=== PATIENT | female | born 1980 | race Caucasian/White ===

== ENCOUNTER 2018-05-31 09:51 | Emergency (ER) | payer MEDICAID, SELFPAY ==
[2018-05-31 09:53] VITALS: BP 160/117; PULSE 96; RESP 14; TEMP 37.2; O2SAT 98; BMI 37.7
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
[2018-05-31] MEDS: Erythromycin Base 1 OPTH.TUBE 1 APPLIC EACH EYE (10:35)
[2018-05-31] MEDS: LORazepam 2 MG/ML Syringe 1 MG IM (10:35)
== END 2018-05-31 10:39 | disposition home or self-care (01) ==
LOC: ED 10:25
PROVIDERS: Emergency Provider Emergency Medicine; Family Provider Internal Medicine; PCP Internal Medicine
DX: F41.9 Anxiety disorder, unspecified (principal); H10.9 Unspecified conjunctivitis; F32.9 Major depressive disorder, single episode, unspecified
CPT/HCPCS: 96372; 99282

== ENCOUNTER 2018-06-14 07:15 | Emergency (ER) | payer MEDICAID, SELFPAY ==
[2018-06-14 07:16] VITALS: BP 173/107; PULSE 100; RESP 18; TEMP 37.1; O2SAT 98; BMI 34.5
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
[2018-06-14] MEDS: Naproxen 500 MG Tablet PO (07:34)
[2018-06-14] MEDS: LORazepam 1 MG Tablet PO (07:34)
--- NOTE | 2018-06-14 07:35 | ED.DEP ---
ED Disposition - Plan for ED Patient: Disposition: Home or Assisted Living Chief Complaint: Anxiety Instructions: ED Stress React Prescriptions: Naproxen [Naprosyn] 500 mg PO BID PRN #20 tablet PRN Reason: Pain Lorazepam [Ativan] 1 mg PO TID PRN #10 tablet PRN Reason: Anxiety Referrals: Delaney Sotomayor MD [Primary Care Provider] - As soon as possible Additional Instructions: Our social workers will contact you regarding counseling options available in the area.
== END 2018-06-14 07:55 | disposition home or self-care (01) ==
PROVIDERS: Emergency Provider Emergency Medicine; Family Provider Internal Medicine; PCP Internal Medicine
DX: F41.9 Anxiety disorder, unspecified (principal); M54.9 Dorsalgia, unspecified; J45.909 Unspecified asthma, uncomplicated; F32.9 Major depressive disorder, single episode, unspecified
CPT/HCPCS: 99283

== ENCOUNTER 2018-08-15 05:18 | Emergency (ER) | payer MEDICAID, SELFPAY ==
[2018-08-15 05:19] VITALS: BP 162/76; PULSE 139; RESP 20; TEMP 36.2; O2SAT 100; BMI 37.3
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
[2018-08-15] MEDS: LORazepam 1 MG Tablet PO (05:30)
[2018-08-15 06:03] VITALS: PULSE 108; RESP 18; O2SAT 100
--- NOTE | 2018-08-15 06:11 | ED.DEP ---
ED Disposition - Plan for ED Patient: Chief Complaint: Anxiety Instructions: ED Panic Attack Prescriptions: Lorazepam [Ativan] 1 mg PO TID PRN #6 tablet PRN Reason: Anxiety Referrals: Delaney Sotomayor MD [Primary Care Provider] -
[2018-08-15 06:24] VITALS: BP 135/87; PULSE 106; RESP 16; O2SAT 100
== END 2018-08-15 06:25 | disposition home or self-care (01) ==
PROVIDERS: Emergency Provider Emergency Medicine; Family Provider Internal Medicine; PCP Internal Medicine
DX: F41.9 Anxiety disorder, unspecified (principal); F43.10 Post-traumatic stress disorder, unspecified; F32.9 Major depressive disorder, single episode, unspecified
CPT/HCPCS: 99283

== ENCOUNTER 2018-08-19 11:01 | Emergency (ER) | payer MEDICAID, SELFPAY ==
[2018-08-19 11:02] VITALS: BP 150/103; PULSE 102; RESP 18; TEMP 36.6; O2SAT 97; BMI 36.7
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
[2018-08-19] MEDS: LORazepam 1 MG Tablet PO (12:29)
== END 2018-08-19 12:31 | disposition home or self-care (01) ==
LOC: ED 12:24
PROVIDERS: Emergency Provider Emergency Medicine; Family Provider Internal Medicine; PCP Internal Medicine
DX: F41.9 Anxiety disorder, unspecified (principal); E66.9 Obesity, unspecified; F32.9 Major depressive disorder, single episode, unspecified
CPT/HCPCS: 99283

== ENCOUNTER 2018-08-22 00:52 | Emergency (ER) | payer MEDICAID, SELFPAY ==
[2018-08-22 00:53] VITALS: BP 154/80; PULSE 91; RESP 18; TEMP 36.2; O2SAT 98; BMI 39.4
[2018-08-22] MEDS: Triamcinolone Acetonide 40 MG/ML Vial IM (01:46)
[2018-08-22] MEDS: Ondansetron ODT 4 MG Tablet PO (01:46)
[2018-08-22 01:56] VITALS: BP 145/80; PULSE 80; RESP 14; O2SAT 98
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
--- NOTE | 2018-08-22 02:40 | ED.DEP ---
ED Disposition - Plan for ED Patient: Chief Complaint: Allergic Reaction Instructions: ED Bite Sting Insect Local Allergic React Prescriptions: Ondansetron [Zofran Odt] 4 mg PO Q8H PRN PRN #10 tab PRN Reason: Nausea Referrals: Delaney Sotomayor MD [Primary Care Provider] -
[2018-08-22 02:56] VITALS: BP 146/75; PULSE 85; RESP 14; O2SAT 98
== END 2018-08-22 02:59 | disposition home or self-care (01) ==
PROVIDERS: Emergency Provider Emergency Medicine; Family Provider Internal Medicine; PCP Internal Medicine
DX: T78.40XA Allergy, unspecified, initial encounter (principal); W57.XXXA Bitten or stung by nonvenomous insect and other nonvenomous arthropods, initial encounter; R11.0 Nausea; F41.9 Anxiety disorder, unspecified
CPT/HCPCS: 99284; A4216

== ENCOUNTER 2019-02-21 17:27 | Emergency (ER) | payer MEDICAID, SELFPAY ==
[2019-02-21 17:28] VITALS: BP 125/64; PULSE 86; RESP 17; TEMP 36.7; O2SAT 97; BMI 41.5
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
--- NOTE | 2019-02-21 18:44 | US_ITS ---
STUDY: VENOUS DOPPLER ULTRASOUND - BILATERAL LOWER EXTREMITIES REASON FOR EXAM: Female, 38 years old. Bilateral lower extremity swelling TECHNIQUE: Ultrasound evaluation of the deep vein system to include jackson-scale imaging and compression was performed. Jackson-scale imaging and Doppler sonographic evaluation, including duplex spectral analysis and qualitative color flow sonography, was performed. COMPARISON: None. FINDINGS: RIGHT LEG Common Femoral Vein: Normal compression, spontaneity and augmentation. Normal color Doppler. Common Femoral Vein/Greater Saphenous Junction: Normal compression, spontaneity and augmentation. Normal color Doppler. Deep Femoral Vein: Normal compression, spontaneity and augmentation. Normal color Doppler. Femoral Proximal: Normal compression, spontaneity and augmentation. Normal color Doppler. Femoral Middle: Normal compression, spontaneity and augmentation. Normal color Doppler. Femoral Distal: Normal compression, spontaneity and augmentation. Normal color Doppler. Popliteal Vein: Normal compression, spontaneity and augmentation. Normal color Doppler. Posterior Tibial Vein: Normal compression, spontaneity and augmentation. Normal color Doppler. Peroneal Vein: Normal compression, spontaneity and augmentation. Normal color Doppler. LEFT LEG Common Femoral Vein: Normal compression, spontaneity and augmentation. Normal color Doppler. Common Femoral Vein/Greater Saphenous Junction: Normal compression, spontaneity and augmentation. Normal color Doppler. Deep Femoral Vein: Normal compression, spontaneity and augmentation. Normal color Doppler. Femoral Proximal: Normal compression, spontaneity and augmentation. Normal color Doppler. Femoral Middle: Normal compression, spontaneity and augmentation. Normal color Doppler. Femoral Distal: Normal compression, spontaneity and augmentation. Normal color Doppler. Popliteal Vein: Normal compression, spontaneity and augmentation. Normal color Doppler. Posterior Tibial Vein: Normal compression, spontaneity and augmentation. Normal color Doppler. Peroneal Vein: Normal compression, spontaneity and augmentation. Normal color Doppler. US/Venous Duplex Imag/John Extrem IMPRESSION: Normal venous Doppler ultrasound of the bilateral lower extremities. Electronically Signed: Michele Gilbert MD at 19:47 EDT , Service support ,
[2019-02-21] MEDS: Ondansetron 4 MG/2 ML Vial IV ×2 (18:48→20:31)
[2019-02-21] MEDS: Morphine 2 MG/ML Syringe IV (18:48)
[2019-02-21 19:18] LABS: Absolute Lymphocyte Count 1.91 X10^3/ul (0.83-4.51); Absolute Neutrophil Count 2.9 X10^3/uL (2.0-7.7); Basophil# 0.03 X10^3/uL; Basophil% 0.6 % (0-1); Eosinophil# 0.27 X10^3/uL; Hematocrit 34.8 % (37-47); Hemoglobin 11.7 g/dl (12.0-15.0); Lymphocyte # 1.91 X10^3/ul (4.0); Lymphocyte % 35.1 % (19-41); Mean Corp Hgb Conc 33.6 g/gl (32-36); Mean Corpuscular Volume 83.3 fL (81-99); Mean Platelet Vol. 10.2 fl (6.2-12.0); Monocyte# 0.35 X10^3/uL; Monocyte% 6.4 % (0-10); Neutrophil # 2.87 X10^3/uL (2.7-7.7); Neutrophil % 52.7 % (47-70); Platelet Count 231 K/mm3 (150-450); RBC Distribution Width CV 13.2 % (11.6-14.6); RBC Distribution Width SD 39.8 fl (35.1-43.9); Red Blood Count 4.18 M/mm3 (4.2-5.4); White Blood Count 5.4 K/mm3 (4.4-11.0)
[2019-02-21 19:19] LABS: POSITIVE COUNT NO; POSITIVE DIFFERENTIAL NO; POSITIVE MORPHOLOGY NO
[2019-02-21 19:23] LABS: Partial Thromboplast Time 32.2 Seconds (24.1-36.2)
[2019-02-21 19:34] LABS: AST(SGOT) 18 U/L (15-37); Alanine Aminotransfer ALT/SGPT 25 U/L (13-56); Albumin, Serum 3.3 g/dL (3.2-5.0); Alkaline Phosphatase 73 U/L (45-117); Anion Gap 6 (5-15); BUN 7 mg/dL (7-18); Calcium,Total 8.9 mg/dL (8.5-10.1); Chloride 103 mmol/L (98-107); Creatinine, Serum 0.64 mg/dL (0.55-1.02); EST Glomerular Filtration Rate 110 mL/min (>60); Est Glom Filt Rate - Afr Amer 133 mL/min (>60); Estimated Creatinine Clearance 97.62 ml/min; Globulin 3.3 g/dL (2.2-4.2); Glucose 96 mg/dL (74-106); Potassium 3.5 mmol/L (3.5-5.1); Protein, Total 6.6 g/dL (6.4-8.2); Sodium Level 140 mmol/L (136-145)
[2019-02-21 19:46] LABS: BNP,B-Type NATRIURETIC PEPTIDE 37.9 pg/mL (0-100)
[2019-02-21 20:16] LABS: Bacteria 0 SEEN /hpf (None Seen); Mucous, Urine 0 SEEN /hpf (<or=2+); Red Blood Cells-Urine 0 SEEN /hpf (0-5); White Blood Cells 0 SEEN /hpf (0-5)
[2019-02-21 20:18] LABS: Color, Urine Yellow (Yellow); Glucose, Dipstick Normal (Normal); Ketone-Dipstick Negative (Negative); Leukocyte Esterase-Dipstick Negative /ul (Negative); Nitrite-Dipstick Negative (Negative); Occult Blood-Urine Negative /ul (Negative); Protein-Dipstick Negative (Negative); Urine Bilirubin Dipstick Negative (Negative); Urine Clarity Clear (Clear); Urine Urobilinogen Normal (Normal)
[2019-02-21 20:29] LABS: Squamous Epithelial Cells - UA 5-10 SEEN /hpf (5-10)
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
[2019-02-21 21:02] VITALS: BP 137/78; PULSE 71; RESP 16; O2SAT 98
== END 2019-02-21 21:03 | disposition home or self-care (01) ==
PROVIDERS: Emergency Provider Emergency Medicine; Family Provider Internal Medicine; PCP Internal Medicine
DX: R60.0 Localized edema (principal); Z88.5 Allergy status to narcotic agent; Z86.718 Personal history of other venous thrombosis and embolism
CPT/HCPCS: 74176; 80053; 81001; 83880; 84484; 85025; 85610; 85730; 93970; 96374; 96375; 96376; 99282; A4216; J2405

== ENCOUNTER 2019-02-23 13:26 | Emergency (ER) | payer MEDICAID, SELFPAY ==
[2019-02-23 13:27] VITALS: BP 126/81; PULSE 119; RESP 18; TEMP 37.1; O2SAT 97; BMI 41.8
[2019-02-23 13:40] VITALS: PULSE 107; RESP 15; O2SAT 96
--- NOTE | 2019-02-23 13:55 | RAD_ITS ---
STUDY: X-RAY CHEST REASON FOR EXAM: Female, 38 years old. Chest fullness. Bilateral lower extremity swelling. TECHNIQUE: Single AP portable view of the chest. COMPARISON: None. FINDINGS: EKG or tubes are seen. The lungs are clear and expanded. There is no demonstrated pleural abnormality. Normal size heart. Normal mediastinum and mratin. Normal visualized pulmonary arteries. Normal visualized aortic arch and descending thoracic aorta. Normal visualized thoracic spine. Normal visualized ribs, clavicles, and shoulders. There is no demonstrated abnormality of the visualized soft tissue structures of the upper abdomen. RAD/Chest 1 View (Portable) IMPRESSION: Normal x-ray examination of the chest. Electronically Signed: Hussain Awad, at 14:15 EDT , Service support ,
--- NOTE | 2019-02-23 13:55 | EKG12_ITS ---
Test Reason : EDEMA Blood Pressure : / mmHG Vent. Rate : 087 BPM Atrial Rate : 087 BPM P-R Int : 136 ms QRS Dur : 082 ms QT Int : 394 ms P-R-T Axes : 037 003 024 degrees QTc Int : 474 ms Normal sinus rhythm Cannot rule out Anterior infarct , age undetermined Abnormal ECG Confirmed by HAMMAD CAT ([id number]), publications editor YAHAIRA HAJI ([id number]) on 03/02/2019 2:03:51 PM Referred By: Bobby Duncan Confirmed By:HAMMAD CAT
[2019-02-23] MEDS: Ondansetron 4 MG/2 ML Vial IV (14:15)
[2019-02-23] MEDS: Morphine 4 MG/ML Syringe IV ×2 (14:15→16:51)
[2019-02-23 14:33] LABS: Absolute Lymphocyte Count 1.83 X10^3/ul (0.83-4.51); Absolute Neutrophil Count 2.8 X10^3/uL (2.0-7.7); Basophil# 0.03 X10^3/uL; Basophil% 0.5 % (0-1); Eosinophil# 0.26 X10^3/uL; Eosinophils% 4.8 % (0-5); Hematocrit 36.2 % (37-47); Hemoglobin 12.1 g/dl (12.0-15.0); Lymphocyte # 1.83 X10^3/ul (4.0); Lymphocyte % 33.5 % (19-41); Mean Corp Hgb Conc 33.4 g/gl (32-36); Mean Corpuscular Hgb 27.5 pg (27.0-32.0); Mean Corpuscular Volume 82.3 fL (81-99); Mean Platelet Vol. 10.2 fl (6.2-12.0); Monocyte# 0.51 X10^3/uL; Monocyte% 9.3 % (0-10); Neutrophil # 2.82 X10^3/uL (2.7-7.7); Neutrophil % 51.7 % (47-70); Platelet Count 257 K/mm3 (150-450); RBC Distribution Width CV 13.3 % (11.6-14.6); RBC Distribution Width SD 38.3 fl (35.1-43.9); White Blood Count 5.5 K/mm3 (4.4-11.0)
[2019-02-23 14:34] LABS: POSITIVE COUNT NO; POSITIVE DIFFERENTIAL NO; POSITIVE MORPHOLOGY NO
[2019-02-23 14:39] LABS: Prothrombin Time (Protime)PT. 12.7 SECONDS (11.7-14.9)
[2019-02-23 14:40] LABS: Partial Thromboplast Time 32.9 Seconds (24.1-36.2)
[2019-02-23 15:01] LABS: AST(SGOT) 16 U/L (15-37); Alanine Aminotransfer ALT/SGPT 25 U/L (13-56); Albumin, Serum 3.2 g/dL (3.2-5.0); Alkaline Phosphatase 77 U/L (45-117); Anion Gap 8 (5-15); BUN 11 mg/dL (7-18); BUN/Creat Ratio 16.9 RATIO (10-20); Bilirubin, Direct 0.07 mg/dL (0.00-0.30); Calcium,Total 8.8 mg/dL (8.5-10.1); Chloride 106 mmol/L (98-107); Creatinine, Serum 0.65 mg/dL (0.55-1.02); EST Glomerular Filtration Rate 108 mL/min (>60); Est Glom Filt Rate - Afr Amer 130 mL/min (>60); Estimated Creatinine Clearance 96.12 ml/min; Globulin 3.5 g/dL (2.2-4.2); Glucose 106 mg/dL (74-106); Lipase 64 U/L (73-393); Potassium 3.6 mmol/L (3.5-5.1); Protein, Total 6.7 g/dL (6.4-8.2); Sodium Level 142 mmol/L (136-145)
--- NOTE | 2019-02-23 16:53 | ED.DCSUM_ITS ---
- ER Visit Summary Date of Service: 02/23/19 Chief Complaint: Bilateral lower extremity swelling History of Present Illness: The patient is a 38 F complaining last 4 days of bilateral lower extremity swelling. She was seen in the emergency department 2 days ago on extensive work-up in which the labs were unremarkable and there was also a negative venous study of both lower extremities and negative abdominal CT. She denies any chest pain or shortness of breath. States she is never had this before. Physical Examination: Middle-aged female no acute distress vital signs stable afebrile. Pulse ox 97% room air no signs of hypoxia. HEENT exam unremarkable. Neck nontender no lymphadenopathy. No JVD. Lungs clear to auscultation bilaterally. Heart regular rhythm rate about 110 no murmur. Abdomen soft nontender nondistended normal bowel sounds no peritoneal signs. She does have bruising on her abdominal wall after she got that she was unsure. She denies trauma. She is not on any type of anticoagulation or any type of abdominal injections. Is all 4. Neurovascular intact. She does have 1-2+ pitting edema both lower extremities. Equal symmetrical. Calves are nontender. Both lower back is intact. No compartment. Dorsi plantar flexion intact. Test Results: None. Chest x-ray showed no acute abnormality. Normal cardiac silhouette mediastinum. CBC normal white count of 5. Hemoglobin 12. Chemistries normal. Gap of 8. Liver enzymes are normal. Lipase normal at 64. PT PTT INR all normal. EKG sinus rhythm rate of 90. No acute signs of RI or ischemia. No dysrhythmia. Emergency Department Course and Treatment: Repeat exam is unchanged. I did review her work-up from 2 days ago. At that time her labs are also unremarkable. At that time she had negative ultrasound of both legs with no signs of DVT. Edema she also is pelvis without any signs of inferior vena cava clot. Treatment Plan: Discharge home. Elevate her legs. Follow-up with primary care physician Dr. Sotomayor. We will place the patient on Lasix 20 mg a day for the next 5 days along with oral potassium at home. She needs to follow-up with your doctor to ensure she is improving. And for further diuretic as needed. Disposition: Discharge Impression: Acute bilateral lower extremity peripheral edema of uncertain etiology This note was generated with [employer] software. It may contain incorrect words, spelling, and punctuation that were not noted in review of the chart prior to signing ED Disposition - Plan for ED Patient: Disposition: Home or Assisted Living Instructions: PERIPHERAL EDEMA, Bilateral Referrals: Delaney Sotomayor MD [Primary Care Provider] - As soon as possible Additional Instructions: Call follow-up with your doctor. Elevate your legs to decrease the swelling. Follow-up and get compression stockings.
[2019-02-23 16:54] VITALS: BP 147/92; PULSE 82; RESP 18; O2SAT 97
--- NOTE | 2019-02-23 16:57 | ED.DEP ---
ED Disposition - Plan for ED Patient: Disposition: Home or Assisted Living Instructions: PERIPHERAL EDEMA, Bilateral Prescriptions: Potassium Chloride [K-Dur] 20 meq PO DAILY 5 Days tab Prescription Printed Furosemide [Lasix] 20 mg PO DAILY #5 tab Prescription Printed Referrals: Delaney Sotomayor MD [Primary Care Provider] - As soon as possible Additional Instructions: Call follow-up with your doctor. Elevate your legs to decrease the swelling. Follow-up and get compression stockings.
[2019-02-23 17:09] VITALS: BP 138/78; PULSE 82; RESP 18; O2SAT 99
== END 2019-02-23 17:09 | disposition home or self-care (01) ==
PROVIDERS: Emergency Provider Emergency Medicine; Family Provider Internal Medicine; PCP Internal Medicine
DX: R60.0 Localized edema (principal); S30.1XXA Contusion of abdominal wall, initial encounter; R05 Cough; X58.XXXA Exposure to other specified factors, initial encounter; Y93.9 Activity, unspecified; Y92.9 Unspecified place or not applicable; F32.9 Major depressive disorder, single episode, unspecified; F41.9 Anxiety disorder, unspecified; Z79.899 Other long term (current) drug therapy
CPT/HCPCS: 71045; 80048; 80076; 83690; 84484; 85025; 85610; 85730; 93005; 96374; 96375; 96376; 99284; A4216; J2405

== ENCOUNTER 2019-02-25 17:11 | Observation (INO) | payer MEDICAID, SELFPAY ==
[2019-02-25 17:12] VITALS: BP 143/88; PULSE 92; RESP 16; TEMP 36.6; O2SAT 98; BMI 41.4
--- NOTE | 2019-02-25 17:52 | EKG12_ITS ---
Test Reason : RHYTHM CH Blood Pressure : / mmHG Vent. Rate : 065 BPM Atrial Rate : 065 BPM P-R Int : 134 ms QRS Dur : 080 ms QT Int : 466 ms P-R-T Axes : 022 010 037 degrees QTc Int : 484 ms Normal sinus rhythm Prolonged QT Abnormal ECG When compared with ECG of 25-FEB-2019 18:00, MANUAL COMPARISON REQUIRED, DATA IS UNCONFIRMED Confirmed by JOSSE CRUZ, SEGUN ([id number]), editor map YAHAIRA HAJI ([id number]) on 03/01/2019 8:08:08 AM Referred By: Bobby Duncan Confirmed By:SEGUN LOAIZA MD
--- NOTE | 2019-02-25 17:53 | CT_ITS ---
STUDY: CTA OF THE ABDOMINAL AORTA REASON FOR EXAM: Female, 38 years old. Leg swelling and shortness of breath. TECHNIQUE: Axial CT angiography multi-detector data acquisition was obtained from the diaphragm to the pelvis following intravenous administration of 100ml IV Isovue 370. Axial images and MIP images were reconstructed from the axial data set. Post-processing of the angiographic images was performed, with multiplanar reformation and 3D reconstruction. Individualized dose optimization techniques were used for this CT. TECHNICAL QUALITY: Good COMPARISON: Prior abdomen and pelvic CT exam of February 21, 2019 Descriptors of Narrowing: None (0%) Mild (< 50%) Moderate (50-70%) Severe (70-90%) Subtotal/Total Occlusion (90-100%) Non-Evaluable (technically non-diagnostic FINDINGS: Abdominal aorta: No demonstrated narrowing. Celiac and superior mesenteric arteries: No demonstrated narrowing. Inferior mesenteric artery: No demonstrated narrowing. Right renal artery(arteries): No demonstrated narrowing. Left renal artery(arteries): No demonstrated narrowing. Right common iliac artery: No demonstrated narrowing. Right external iliac artery: No demonstrated narrowing. Right internal iliac artery: No demonstrated narrowing. Left common iliac artery: No demonstrated narrowing. Left external iliac artery: No demonstrated narrowing. Left internal iliac artery: No demonstrated narrowing. RIGHT LOWER EXTREMITY Right common femoral artery: No demonstrated narrowing. Right profundus femoris: No demonstrated narrowing. LEFT LOWER EXTREMITY Left common femoral artery: No demonstrated narrowing. Left profundus femoris: No demonstrated narrowing. Unremarkable liver, spleen and pancreas. Status post cholecystectomy. Normal appearance of the kidneys bilaterally. A small nonobstructing calcification of the left kidney is not visible on today's exam secondary to contrast present in the collecting system. Nondistended stomach and small bowel. Stool filled colon. Status post appendectomy. There is a 16 x 11 x 12 mm dense or enhancing nodule associated with distal small bowel occurring just above the bladder. There is generalized anasarca since the prior exam and a minimal amount of peritoneal fluid increased from prior exam. There is a 4 cm cyst of the right ovary. Unremarkable uterus and left ovary. Nondistended urinary bladder. Unremarkable inferior vena cava and iliac veins. CT/CT ANGIO ABD&PEL W/O&W/DYE IMPRESSION: Normal abdominal aorta and and abdominal branches. Normal noncontrast filled inferior vena cava and iliac veins. Mild anasarca and minimal ascites. Stool filled colon. Status post appendectomy. 4 cm cyst of the right ovary. 16 x 11 x 12 dense or enhancing nodule associated with distal small bowel occurring just above the bladder. Possibilities include a dense food particle or enhancing mass such as polyp. Otherwise normal small bowel. Unremarkable stomach. A tiny nonobstructing calcification in the lower pole the left kidney is not visible secondary to contrast present in the collecting systems. This was identified on the prior noncontrast exam. Electronically Signed: Christiana Cervantes MD at 20:07 EDT , Service support ,
--- NOTE | 2019-02-25 17:53 | CT_ITS ---
STUDY: CTA CHEST REASON FOR EXAM: Female, 38 years old. Leg swelling and shortness of breath. RADIATION DOSAGE (If Supplied By Facility): CTDIvol = ( 26.03 ) mGy, DLP = ( 1569.44 ) mGycm TECHNIQUE: The examination was performed with the intravenous administration of 100ml IV Isovue 370. Post-processing of the angiographic images was performed, with multiplanar reformation and 3D reconstruction. Individualized dose optimization techniques were used for this CT. COMPARISON: Portable chest radiograph February 23, 2019 FINDINGS: Normal enhancement of the main pulmonary artery and right and left pulmonary arteries. Normal enhancement of the bilateral peripheral pulmonary arteries. There is no demonstrated pulmonary embolism. Normal thoracic aorta and visualized great vessels. There is no demonstrated aortic dissection. Normal heart and pericardium. Normal mediastinum. Normal hilar regions. Normal visualized trachea and bronchi. Mild bibasilar posterior atelectatic changes. Negative for pleural effusion. Normal chest wall structures. Normal osseous structures. CT/CTA Chest W/WO Contrast IMPRESSION: Negative for pulmonary embolus. Normal thoracic aorta. Negative for coronary calcification. Mild posterior bibasilar atelectatic changes. Electronically Signed: Christiana Cervantes MD at 19:54 EDT , Service support ,
--- NOTE | 2019-02-25 17:54 | ED.VISSUMM ---
- ER Visit Summary Date of Service: 02/25/19 Chief Complaint: Bilateral leg swelling History of Present Illness: The patient is a 38 F presents for 5 days of bilateral leg swelling, now with significant pain in the legs. Patient is also now having chest heaviness and dyspnea on exertion. This is her third visit to the emergency department for the same and she was sent in by her primary care doctor today. Patient's legs are more painful to touch. She is having nausea, vocal hoarseness, and has a rash on her abdomen all of which is been present since the onset of the leg swelling. Patient has felt febrile as well. She is tried Lasix without any improvement. She is on Omnicef for her vocal hoarseness. She denies any medical problems other than depression. She has no recent medication changes. Physical Examination: Vital signs: afebrile, hemodynamically stable, no hypoxia on room air General: well nourished, well developed, in no distress Skin: warm, dry, purpura along the anterior waist above patient's natural waistline, no pallor HEENT: normocephalic and atraumatic; PERRL, EOMI, moist mucous membranes Cardiovascular: Tachycardic rate and rhythm without murmurs, 2+ symmetric peripheral edema, tense and tender, mild erythema, extends up to the mid thigh, 2+ pulses all distal extremities Respiratory: No increased work of breathing, lungs are clear to auscultation bilaterally, no rales, rhonchi or wheezing Abdominal: Abdomen is soft, nontender with normoactive bowel sounds, no guarding or rebound, no masses MSK: Moves all extremities, no deformities, normal strength Neuro: Awake and alert, oriented ?4. No facial droop, sensation and motor function intact and symmetric Test Results: Abnormal Lab Results 02/25/19 02/25/19 02/25/19 18:35 18:35 18:35 WBC 5.9 RBC 4.42 Hgb 12.4 Hct 36.5 L MCV 82.6 MCH 28.1 MCHC 34.0 RDW 13.5 RDW Differential 39.5 Plt Count 258 MPV 10.1 Immature Gran % (Auto) 0.200 Neut % (Auto) 55.0 Lymph % (Auto) 32.1 [place] % (Auto) 7.1 Eos % (Auto) 5.1 H Baso % (Auto) 0.5 Absolute Neuts (auto) 3.2 Absolute Lymphs (auto) 1.89 Total Counted Not Reportable Sodium 139 Potassium 3.7 Chloride 105 Carbon Dioxide 30.0 Anion Gap 4 L BUN 6 L Creatinine 0.66 Estim Creat Clear Calc 94.67 Est GFR (MDRD) Af Amer 129 Est GFR (MDRD) Non-Af 106 BUN/Creatinine Ratio 9.1 L Glucose 95 Lactic Acid 0.6 Calcium 8.7 Total Bilirubin 0.30 Direct Bilirubin 0.08 AST 15 ALT 22 Alkaline Phosphatase 77 Troponin I < 0.015 B-Natriuretic Peptide Total Protein 6.8 Albumin 3.3 Globulin 3.5 TSH 2.82 Free T4 0.62 L Serum , Qual 02/25/19 02/25/19 18:35 18:35 WBC RBC Hgb Hct MCV MCH MCHC RDW RDW Differential Plt Count MPV Immature Gran % (Auto) Neut % (Auto) Lymph % (Auto) [place] % (Auto) Eos % (Auto) Baso % (Auto) Absolute Neuts (auto) Absolute Lymphs (auto) Total Counted Sodium Potassium Chloride Carbon Dioxide Anion Gap BUN Creatinine Estim Creat Clear Calc Est GFR (MDRD) Af Amer Est GFR (MDRD) Non-Af BUN/Creatinine Ratio Glucose Lactic Acid Calcium Total Bilirubin Direct Bilirubin AST ALT Alkaline Phosphatase Troponin I B-Natriuretic Peptide 35.4 Total Protein Albumin Globulin TSH Free T4 Serum , Qual NEGATIVE Clinical Impression(s) from Imaging Studies Abdomen/Pelvis CTA 02/25/19 17:53 IMPRESSION: Normal abdominal aorta and and abdominal branches. Normal noncontrast filled inferior vena cava and iliac veins. Mild anasarca and minimal ascites. Stool filled colon. Status post appendectomy. 4 cm cyst of the right ovary. 16 x 11 x 12 dense or enhancing nodule associated with distal small bowel occurring just above the bladder. Possibilities include a dense food particle or enhancing mass such as polyp. Otherwise normal small bowel. Unremarkable stomach. A tiny nonobstructing calcification in the lower pole the left kidney is not visible secondary to contrast present in the collecting systems. This was identified on the prior noncontrast exam. Electronically Signed: Christiana Cervantes MD at 20:07 EDT , Service support , Chest CTA 02/25/19 17:53 IMPRESSION: Negative for pulmonary embolus. Normal thoracic aorta. Negative for coronary calcification. Mild posterior bibasilar atelectatic changes. Electronically Signed: Christiana Cervantes MD at 19:54 EDT , Service support , Medications Given Discontinued Medications Furosemide (Lasix) 40 mg IV X1 ONE Stop: 02/25/19 21:21 Sodium Chloride () 500 mls @ 999 mls/hr IV .Q31M ONE Stop: 02/25/19 18:24 Last Admin: 02/25/19 18:38 Dose: 999 mls/hr Documented by: STAS Morphine Sulfate () 4 mg IV X1 ONE Stop: 02/25/19 17:53 Last Admin: 02/25/19 18:45 Dose: 4 mg Documented by: STAS Morphine Sulfate () 4 mg IV X1 ONE Stop: 02/25/19 21:57 Ondansetron HCl (Zofran) 4 mg IV X1 ONE Stop: 02/25/19 17:53 Last Admin: 02/25/19 18:45 Dose: 4 mg Documented by: STAS Emergency Department Course and Treatment: Patient presents for the third time this week for worsening lower extremity edema, now with dyspnea on exertion and some chest tightness. Patient was referred by her primary care doctor who is concerned that despite very thorough work-ups this week, she is still having progressively worsening symptoms, and now also has the rash on her abdomen. EKG showed a sinus rhythm with no ischemic changes. CBC showed no leukocytosis, but did have a mild eosinophilia predominance. BMP and hepatic function normal. Troponin negative. BNP was negative. Lactate normal. negative. TSH was within normal range and free T4 was mildly low at 0.62. CTA of the chest abdomen and pelvis was performed today, as it was the imaging not done yet to look for any possible vascular issues, such as pulmonary embolism. No PE was noted. There was noted anasarca with some mild free intraperitoneal fluid on the imaging. It is unclear why patient is having the severe edema. She was given IV Lasix for edema. She was given morphine and Zofran for symptoms, and required additional pain medication due to continued pain. Patient continued to have worsening of her discomfort, and at this point she will be admitted for further work-up and treatment of anasarca of unknown origin and failure of outpatient treatment, as she has been on Lasix this week without any improvement. Patient was discussed with the hospitalist for admission. Treatment Plan: [] Disposition: [] Impression: Anasarca, dyspnea on exertion This note was generated with [employer] dictation software. It may contain incorrect words, spelling, and punctuation that were not noted in review of the chart prior to signing ED Disposition - Plan for ED Patient: Disposition: Acute Care Hospital [facility]
[2019-02-25 18:37] VITALS: BP 131/66; PULSE 83; RESP 16; O2SAT 98
[2019-02-25] MEDS: Morphine 4 MG/ML Syringe IV ×2 (18:45→22:40)
[2019-02-25] MEDS: Ondansetron 4 MG/2 ML Vial IV (18:45)
[2019-02-25 19:09] LABS: Absolute Lymphocyte Count 1.89 X10^3/ul (0.83-4.51); Absolute Neutrophil Count 3.2 X10^3/uL (2.0-7.7); Basophil# 0.03 X10^3/uL; Basophil% 0.5 % (0-1); Eosinophils% 5.1 % (0-5); Hematocrit 36.5 % (37-47); Hemoglobin 12.4 g/dl (12.0-15.0); Lymphocyte # 1.89 X10^3/ul (4.0); Lymphocyte % 32.1 % (19-41); Mean Corpuscular Hgb 28.1 pg (27.0-32.0); Mean Corpuscular Volume 82.6 fL (81-99); Mean Platelet Vol. 10.1 fl (6.2-12.0); Monocyte# 0.42 X10^3/uL; Monocyte% 7.1 % (0-10); Neutrophil # 3.23 X10^3/uL (2.7-7.7); Platelet Count 258 K/mm3 (150-450); RBC Distribution Width CV 13.5 % (11.6-14.6); RBC Distribution Width SD 39.5 fl (35.1-43.9); Red Blood Count 4.42 M/mm3 (4.2-5.4); White Blood Count 5.9 K/mm3 (4.4-11.0)
[2019-02-25 19:11] LABS: POSITIVE COUNT NO; POSITIVE DIFFERENTIAL NO; POSITIVE MORPHOLOGY NO
[2019-02-25 19:15] LABS: Internal QC Validated? YES +Cl - CLEAR BKGD; Pregnancy, Serum, hCG Quali. NEGATIVE Negative
[2019-02-25 19:31] LABS: AST(SGOT) 15 U/L (15-37); Alanine Aminotransfer ALT/SGPT 22 U/L (13-56); Albumin, Serum 3.3 g/dL (3.2-5.0); Alkaline Phosphatase 77 U/L (45-117); Anion Gap 4 (5-15); BUN 6 mg/dL (7-18); BUN/Creat Ratio 9.1 RATIO (10-20); Bilirubin, Direct 0.08 mg/dL (0.00-0.30); Calcium,Total 8.7 mg/dL (8.5-10.1); Chloride 105 mmol/L (98-107); Creatinine, Serum 0.66 mg/dL (0.55-1.02); EST Glomerular Filtration Rate 106 mL/min (>60); Est Glom Filt Rate - Afr Amer 129 mL/min (>60); Estimated Creatinine Clearance 94.67 ml/min; Globulin 3.5 g/dL (2.2-4.2); Glucose 95 mg/dL (74-106); Lactic Acid 0.6 mmol/L (0.4-2.0); Potassium 3.7 mmol/L (3.5-5.1); Protein, Total 6.8 g/dL (6.4-8.2); Sodium Level 139 mmol/L (136-145); T4 Free Direct 0.62 ng/dL (0.76-1.46); Thyroid Stim Hormone (TSH) 2.82 uIU/mL (0.358-3.74)
[2019-02-25 19:39] LABS: BNP,B-Type NATRIURETIC PEPTIDE 35.4 pg/mL (0-100)
--- NOTE | 2019-02-25 21:51 | HP.PCM_ITS ---
Problem List (1) Anasarca Status: Acute History of Present Illness Date of Admission: 02/25/19 Chief Complaint: generalized body swelling The patient is a 38 year old F with a significant history of depression and anxiety who presented to the emergency department with generalized body swelling and generalize pain that started about 5 days prior to presentation. Associated with her symptoms is chest heaviness. Also she has hoarseness of her voice for which she was started on Omnicef. Patient was given Lasix pills and potassium pills outpatient. Reportedly patient had many work-up outpatient without any clear etiology of her generalized body swelling. Further she had some bruises in her abdomen and her bilateral legs look mildly red. She reports pain at her left rib. Past Medical History Medical History: Medical History (Last Updated 02/26/19 @ 09:58 by Bobby Duncan MD) Anxiety and depression F41.9, F32.9 Allergies hydrocodone [From Vicodin] Adverse Reaction (Verified 02/25/19 17:14) Itching loratadine [From Claritin] Adverse Reaction (Verified 02/25/19 17:14) Other Home Medications: Ambulatory Orders Medication Instructions Recorded buPROPion XL [Wellbutrin Xl] 300 mg PO DAILY 07/02/14 Cefdinir [Omnicef [equiv]] 300 mg PO Q12H 02/21/19 Citalopram [Celexa] 40 mg PO DAILY 02/21/19 Fluticasone 0.05% [Flonase Nasal 1 spray NASAL DAILY 02/21/19 [place]] Acetaminophen [Tylenol Extra 1,000 mg PO Q6H PRN PRN 02/23/19 Strength] Cetirizine HCl 10 mg PO DAILY 02/23/19 Doxepin HCl 200 mg PO QHS 02/23/19 Furosemide [Lasix] 20 mg PO DAILY #5 tab 02/23/19 Ibuprofen [Advil] 600 mg PO Q6H PRN PRN 02/23/19 Potassium Chloride [K-Dur] 20 meq PO DAILY 5 Days tab 02/23/19 Tizanidine HCl 4 mg PO Q8H PRN PRN 02/23/19 Surgical History: appendectomy, cholecystectomy, - - 2 C-sections; lithotripsy Lives: With Family Smoking Status: Never smoker Alcohol: None - *Family History Maternal History Items: Diabetes, Hypertension Paternal History Items: Diabetes, - - Pulmonary emboli Review of Systems Constitutional: Denies: Chills, Fever, Weight Change HEENT: Denies: Head Aches, Sinus Congestion, Sinus Drainage Cardiovascular: Reports: Edema, Heaviness. Denies: Chest Pain, Palpitations Respiratory: Denies: Cough, Shortness of breath at rest, Sputum production Gastrointestinal: Denies: Abdominal Pain, Nausea, Vomiting Genitourinary: Denies: Dysuria Musculoskeletal: Reports: Leg Pain. Denies: Joint Pain, Joint Tenderness Skin: Denies: Rash, Wounds Neurological: Denies: Numbness, Tingling, Focal weakness Psychiatric: Denies: Anxiety, Depression, Homicidal Ideations, Suicidal Ideations Hematologic/ Lymphatic: Denies: Easy Bruising, Easy Bleeding VTE Information - Inpt Only VTE Present on Admission: No VTE Mechan Device Prophylaxis: None VTE Pharm Prophylaxis ordered?: Yes Patient Problems: Active and Suspected Problems Anasarca (Acute) - Physical Exam General: Alert, Oriented x3, Cooperative HEENT: Atraumatic, PERRLA, EOMI, Normocephalic Neck: Supple, No JVD, Negative Carotid Bruits Lungs: Clear to auscultation, Normal air movement, - - Pain at left rib Cardiovascular: Regular rate, No murmurs Abdomen: Bowel Sounds Present, Soft Extremities: Capillary Refill Less than 3 Seconds, Edema - Bilateral legs Skin: - - Mild erythema of bilateral legs Musculoskeletal: No Muscle Wasting Neurological: Cranial nerves II-XII grossly intact Psych/Mental Status: Normal Affect, Appropriate Vital Signs Temp Pulse Resp BP Pulse Ox 98 F 83 16 131/66 H 98 02/25/19 17:12 02/25/19 18:37 02/25/19 18:37 02/25/19 18:37 02/25/19 18:37 Oxygen Delivery Method Room Air Weight: 106.2 kg Body Mass Index (BMI) 41.4 Laboratory Tests Past 24 Hrs 02/25/19 02/25/19 02/25/19 18:35 18:35 18:35 WBC 5.9 RBC 4.42 Hgb 12.4 Hct 36.5 L MCV 82.6 MCH 28.1 MCHC 34.0 RDW 13.5 RDW Differential 39.5 Plt Count 258 MPV 10.1 Immature Gran % (Auto) 0.200 Neut % (Auto) 55.0 Lymph % (Auto) 32.1 [place] % (Auto) 7.1 Eos % (Auto) 5.1 H Baso % (Auto) 0.5 Absolute Neuts (auto) 3.2 Absolute Lymphs (auto) 1.89 Total Counted Not Reportable Sodium 139 Potassium 3.7 Chloride 105 Carbon Dioxide 30.0 Anion Gap 4 L BUN 6 L Creatinine 0.66 Estim Creat Clear Calc 94.67 Est GFR (MDRD) Af Amer 129 Est GFR (MDRD) Non-Af 106 BUN/Creatinine Ratio 9.1 L Glucose 95 Lactic Acid 0.6 Calcium 8.7 Total Bilirubin 0.30 Direct Bilirubin 0.08 AST 15 ALT 22 Alkaline Phosphatase 77 Troponin I < 0.015 B-Natriuretic Peptide Total Protein 6.8 Albumin 3.3 Globulin 3.5 TSH 2.82 Free T4 0.62 L Serum , Qual 02/25/19 02/25/19 18:35 18:35 WBC RBC Hgb Hct MCV MCH MCHC RDW RDW Differential Plt Count MPV Immature Gran % (Auto) Neut % (Auto) Lymph % (Auto) [place] % (Auto) Eos % (Auto) Baso % (Auto) Absolute Neuts (auto) Absolute Lymphs (auto) Total Counted Sodium Potassium Chloride Carbon Dioxide Anion Gap BUN Creatinine Estim Creat Clear Calc Est GFR (MDRD) Af Amer Est GFR (MDRD) Non-Af BUN/Creatinine Ratio Glucose Lactic Acid Calcium Total Bilirubin Direct Bilirubin AST ALT Alkaline Phosphatase Troponin I B-Natriuretic Peptide 35.4 Total Protein Albumin Globulin TSH Free T4 Serum , Qual NEGATIVE Assessment/Plan All Active Problems Anasarca (Acute) The patient is a 38 year old F with a significant history of depression and anxiety who presented to the emergency department with generalized body swelling and generalize pain that started about 5 days prior to presentation. Anasarca Etiology of her symptoms are unclear at this point. We will get ASHLIE and echocardiogram. Patient was started on morphine as needed and oxycodone as needed but because of hypotension this has been discontinued. Her free T4 is low but this might not explain her symptoms as her TSH was in the normal range. Placed on Lasix IV with parameters of blood pressure. Potassium supplementation while on Lasix Tylenol as needed Laryngitis Omnicef continued. Per patient she has 4 more days left. Ordered as such. Depression and anxiety Celexa and bupropion continue DVT prophylaxis Subcutaneous Lovenox ordered. Code Visit Inpatient E&M: 79633 Init Hosp L3
[2019-02-25 22:00] VITALS: BP 138/66; PULSE 93; RESP 18; O2SAT 94
[2019-02-25] MEDS: Furosemide 40 MG/4 ML Vial IV (22:40)
[2019-02-25 22:42] VITALS: BP 138/66; PULSE 88; RESP 16; O2SAT 94
--- NOTE | 2019-02-25 23:30 | ECHOD_ITS ---
Reason For Study: Swelling Procedure This was a 2D Doppler, Color Flow transthoracic echocardiogram. Exam performed portable in patient room. Left Ventricle Normal size and thickness. Left ventricular systolic function is normal. The estimated ejection fraction is 65 %. Right Ventricle Normal right ventricle. Atria Normal left atrium. Normal right atrium. Mitral Valve The mitral valve is structurally normal. No prolapse or stenosis seen. No mitral valve insufficiency. Tricuspid Valve No tricuspid valve insufficiency. Aortic Valve Trisinus/trileaflet aortic valve. There is no aortic stenosis. No aortic valve insufficiency. Pulmonic Valve The pulmonic valve is not well visualized. Great Vessels Normal ascending aorta. Pericardium/Pleural No pericardial effusion. MMode/2D Measurements & Calculations LVIDd: 4.7 cm IVSd: 1.2 cm Ao root diam: 3.0 cm LVIDs: 3.0 cm LVPWd: 1.0 cm RVDd: 3.7 cm FS: 36.4 % LAV(MOD-bp): 43.1 ml LVAd ap4: 27.0 cm2 SV(MOD-sp4): 39.3 ml LAV(MOD-bp) Indexed: 20.9 ml/m2 EDV(MOD-sp4): 69.9 ml LAV(MOD-sp2): 44.5 ml EDV(sp4-el): 72.9 ml LAV(MOD-sp4): 37.8 ml LVAs ap4: 15.5 cm2 ESV(MOD-sp4): 30.6 ml ESV(sp4-el): 29.1 ml EF(MOD-sp4): 56.2 % EF(sp4-el): 60.0 % SV(sp4-el): 43.8 ml LA A4 area: 16.3 cm2 LA dimension(2D): 3.8 cm RA A4 area: 14.8 cm2 Doppler Measurements & Calculations MV E max kennedy: 97.8 cm/sec Lat Peak E' Kennedy: 11.2 cm/sec Med Peak E' Kennedy: 10.5 cm/sec MV A max kennedy: 68.7 cm/sec E/E' lat: 8.8 E/E' med: 9.3 MV E/A: 1.4 Ao V2 max: 137.2 cm/sec LV V1 max: 129.8 cm/sec PA V2 max: 84.8 cm/sec Ao max P.5 mmHg LV V1 max P.7 mmHg Ao V2 mean: 97.0 cm/sec Ao mean P.2 mmHg Ao V2 VTI: 30.3 cm TR max kennedy: 208.3 cm/sec TR max P.4 mmHg Interpretation Summary The estimated ejection fraction is 65 %. Left ventricular systolic function is normal. Normal size and thickness. Ordering Physician: Bobby Duncan Referring Physician: Delaney Sotomayor Performed By: Ericka Youngblood RDCS, RVT
[2019-02-25 23:47] VITALS: BMI 41.0
[2019-02-25 23:52] VITALS: BMI 41.0
[2019-02-26] VITALS (10 sets, daily range): BP systolic 87–117; BP diastolic 32–58; PULSE 73–84; RESP 9–18; TEMP 36.2–36.9; O2SAT 94–98
[2019-02-26] MEDS: Cefdinir 300 MG Capsule PO ×2 (01:25→09:03)
[2019-02-26] MEDS: tiZANidine HCl 2 MG Tablet 4 MG PO ×2 (01:26→09:10)
[2019-02-26] MEDS: oxyCODONE 5 MG Tablet PO (01:26)
--- NOTE | 2019-02-26 01:44 | NURSING ---
Dr. Duncan gave a verbal order for pt to have a 2 gram sodium diet order around 00:15 on 02/26/19. Unable to change diet start time in computer.
--- NOTE | 2019-02-26 05:49 | EKG12_ITS ---
Test Reason : DYSRHYTHMIA Blood Pressure : / mmHG Vent. Rate : 093 BPM Atrial Rate : 093 BPM P-R Int : 142 ms QRS Dur : 082 ms QT Int : 390 ms P-R-T Axes : 043 -01 021 degrees QTc Int : 484 ms Normal sinus rhythm Cannot rule out Anterior infarct , age undetermined Abnormal ECG Confirmed by HAMMAD CAT ([id number]), content editor YAHAIRA HAJI ([id number]) on 02/28/2019 10:01:26 AM Referred By: Bobby Duncan Confirmed By:HAMMAD CAT
[2019-02-26 08:45] LABS: BUN 9 mg/dL (7-18); Creatinine, Serum 0.72 mg/dL (0.55-1.02); Estimated Creatinine Clearance 86.78 ml/min; Glucose 108 mg/dL (74-106)
[2019-02-26 08:46] LABS: Anion Gap 6 (5-15); BUN/Creat Ratio 12.4 RATIO (10-20); Calcium,Total 8.7 mg/dL (8.5-10.1); Chloride 105 mmol/L (98-107); EST Glomerular Filtration Rate 95 mL/min (>60); Est Glom Filt Rate - Afr Amer 115 mL/min (>60); Sodium Level 140 mmol/L (136-145)
[2019-02-26] MEDS: Citalopram 40 MG TABLET PO (09:03)
[2019-02-26] MEDS: Enoxaparin 40 MG/0.4 ML Syringe SC (09:04)
[2019-02-26] MEDS: Fluticasone 0.05% 1 SPRAY NASAL.SRY NASAL (09:04)
[2019-02-26] MEDS: buPROPion (XL) 300 MG TABLET.XL PO (09:05)
[2019-02-26] MEDS: Furosemide 20 MG/2 ML VIAL IV (09:10)
[2019-02-26] MEDS: 0.9% NaCl Peripheral Flush Adult/Peds IV (09:13)
--- NOTE | 2019-02-26 11:22 | DCINST_ITS ---
- Discharge Diagnoses Current Active Problems: Current Active and Chronic Problems (Last Updated 02/26/19 @ 09:58 by Bobby Duncan MD) Lower extremity swelling You will use the following diet at home:: Other - Calorie controlled Discharge Activity: Return to Normal Activity, - - Compression stockings bilateral lower extremities Allergies/Adverse Reactions: Allergies hydrocodone [From Vicodin] Adverse Reaction (Verified 02/25/19 17:14) Itching loratadine [From Claritin] Adverse Reaction (Verified 02/25/19 17:14) Other Medications to take at Discharge buPROPion XL [Wellbutrin Xl] 300 mg PO DAILY 07/02/14 Cefdinir [Omnicef [equiv]] 300 mg PO Q12H 02/21/19 Citalopram [Celexa] 40 mg PO DAILY 02/21/19 Fluticasone 0.05% [Flonase Nasal [place]] 1 spray NASAL DAILY 02/21/19 Acetaminophen [Tylenol] 1,000 mg PO Q6H PRN PRN 02/23/19 Cetirizine HCl 10 mg PO DAILY 02/23/19 Doxepin HCl 200 mg PO QHS 02/23/19 Furosemide [Lasix] 20 mg PO DAILY #5 tab 02/23/19 Ibuprofen [Motrin] 600 mg PO Q6H PRN PRN 02/23/19 Potassium Chloride [K-Dur] 20 meq PO DAILY 5 Days tab 02/23/19 Tizanidine HCl 4 mg PO Q8H PRN PRN 02/23/19 Primary Care Physician: Delaney Sotomayor MD [Primary Care Provider] - Please follow up with your Primary Care Physician in: 3-5 Days Test Results: Test results from this visit will be discussed in further detail at your follow- up appointment, if applicable. Proposed Discharge Date: 02/26/19
--- NOTE | 2019-02-26 11:24 | DS.PCM_ITS ---
<Glenda Ruiz - Last Filed: 02/26/19 11:40> Discharge Date and Diagnosis Date of Admission: 02/25/19 Date of Discharge: 02/26/19 - Primary Discharge Diagnosis Active and Suspected Problems (Last Updated 02/26/19 @ 09:58 by Bobby Duncan MD) 1. Lower extremity swelling 2. Recent laryngitis 3. Distal small bowel dense abnormality 4. Depression and anxiety 5. Obesity Hospital Course and Treatment Imaging Results: Diagnostic Data Abdomen/Pelvis CTA 02/25/19 17:53 IMPRESSION: Normal abdominal aorta and and abdominal branches. Normal noncontrast filled inferior vena cava and iliac veins. Mild anasarca and minimal ascites. Stool filled colon. Status post appendectomy. 4 cm cyst of the right ovary. 16 x 11 x 12 dense or enhancing nodule associated with distal small bowel occurring just above the bladder. Possibilities include a dense food particle or enhancing mass such as polyp. Otherwise normal small bowel. Unremarkable stomach. A tiny nonobstructing calcification in the lower pole the left kidney is not visible secondary to contrast present in the collecting systems. This was identified on the prior noncontrast exam. Electronically Signed: Christiana Cervantes MD at 20:07 EDT , Service support , Chest CTA 02/25/19 17:53 IMPRESSION: Negative for pulmonary embolus. Normal thoracic aorta. Negative for coronary calcification. Mild posterior bibasilar atelectatic changes. Electronically Signed: Christiana Cervantes MD at 19:54 EDT , Service support , Operations: None Procedures: 2-D Echocardiogram Summary of Care Provided: The patient is a 38 year old F admitted 02/25/2019 due to generalized body swelling. 1. Lower extremity swelling-very minimal nonpitting lower extremity edema on assessment. Patient with 2 recent ER visits for the same symptoms. She was placed on low-dose Lasix and instructed to elevate lower extremities and to use compression stockings. BNP normal. Recent venous duplex 02/21/2019 normal. Chest CTA negative for pulmonary embolism. Patient reports she was told she was filled with fluid. No evidence of anasarca or significant edema. Echocardiogram completed and will be reviewed prior to discharge. She may continue low-dose oral Lasix 20 mg daily. Follow-up with primary care provider in 3 to 5 days. 2. Recent laryngitis-placed on Omnicef by primary care provider, complete previously prescribed course. 3. Distal small bowel dense abnormality-CT of abdomen and pelvis shows 16 x 11 x 12 dense or enhancing nodule associated with the distal small bowel occurring just above the bladder. Possible dense food particle or enhancing mass such as polyp. Otherwise normal small bowel. Patient was offered small bowel follow- through and she declined further testing. Recommend further evaluation as outpatient by primary care provider. 4. Depression and anxiety-patient with multiple prior ER visits due to anxiety/panic attacks. Continue home Wellbutrin, Celexa, doxepin regimen. 5. Obesity-encourage diet/lifestyle modifications. Patient seen and examined prior to discharge. Physical assessment as noted below. Patient is stable for discharge with follow up recommendations as noted above. This patient was seen by LUPE Toro under the supervision of Dr. Burris. - Physical Exam General: Alert, Oriented x3, Cooperative HEENT: Atraumatic, PERRLA, EOMI, Normocephalic Neck: Supple, No JVD, Negative Carotid Bruits Lungs: Clear to auscultation, Normal air movement Cardiovascular: Regular rate, Regular Rhythm, Normal S1, Normal S2, No murmurs Abdomen: Bowel Sounds Present, Soft, Non Tender, Non-Distended, Obese Extremities: No clubbing, No cyanosis, Capillary Refill Less than 3 Seconds, - - Very minimal non-pitting BLLE. Skin: No rashes, No breakdown Musculoskeletal: No Tenderness to Palpation of Joints or Extremities Neurological: Cranial nerves II-XII grossly intact, Neuro grossly intact Psych/Mental Status: Normal Affect, Appropriate Vital Signs Temp Pulse Resp BP Pulse Ox 97.8 F 78 18 113/51 L 96 02/26/19 08:28 02/26/19 08:45 02/26/19 08:28 02/26/19 08:28 02/26/19 08:28 Oxygen Delivery Method Room Air Weight: 230 lb 9.656 oz Body Mass Index (BMI) 41.0 Intake and Output for Last 24 Hours 02/24/19 02/25/19 02/26/19 23:59 23:59 23:59 Intake Total 0 / 0 628 / 628 Balance 0 / 0 628 / 628 Laboratory Tests Past 24 Hrs 02/25/19 02/25/19 02/25/19 18:35 18:35 18:35 WBC 5.9 RBC 4.42 Hgb 12.4 Hct 36.5 L MCV 82.6 MCH 28.1 MCHC 34.0 RDW 13.5 RDW Differential 39.5 Plt Count 258 MPV 10.1 Immature Gran % (Auto) 0.200 Neut % (Auto) 55.0 Lymph % (Auto) 32.1 [place] % (Auto) 7.1 Eos % (Auto) 5.1 H Baso % (Auto) 0.5 Absolute Neuts (auto) 3.2 Absolute Lymphs (auto) 1.89 Total Counted Not Reportable Sodium 139 Potassium 3.7 Chloride 105 Carbon Dioxide 30.0 Anion Gap 4 L BUN 6 L Creatinine 0.66 Estim Creat Clear Calc 94.67 Est GFR (MDRD) Af Amer 129 Est GFR (MDRD) Non-Af 106 BUN/Creatinine Ratio 9.1 L Glucose 95 Lactic Acid 0.6 Calcium 8.7 Total Bilirubin 0.30 Direct Bilirubin 0.08 AST 15 ALT 22 Alkaline Phosphatase 77 Troponin I < 0.015 B-Natriuretic Peptide Total Protein 6.8 Albumin 3.3 Globulin 3.5 TSH 2.82 Free T4 0.62 L Serum , Qual ASHLIE Screen LORELEI-1 Antibody SS-A/Ro IgG Antibody SS-B/La IgG Antibody Sm (Hill) Antibody HOGSHEAD OPENER Antibody Scl-70 Scleroderma Ab Double Strand DNA Ab Centromere B Antibody 02/25/19 02/25/19 02/26/19 18:35 18:35 08:00 WBC RBC Hgb Hct MCV MCH MCHC RDW RDW Differential Plt Count MPV Immature Gran % (Auto) Neut % (Auto) Lymph % (Auto) [place] % (Auto) Eos % (Auto) Baso % (Auto) Absolute Neuts (auto) Absolute Lymphs (auto) Total Counted Sodium Potassium Chloride Carbon Dioxide Anion Gap BUN Creatinine Estim Creat Clear Calc Est GFR (MDRD) Af Amer Est GFR (MDRD) Non-Af BUN/Creatinine Ratio Glucose Lactic Acid Calcium Total Bilirubin Direct Bilirubin AST ALT Alkaline Phosphatase Troponin I B-Natriuretic Peptide 35.4 Total Protein Albumin Globulin TSH Free T4 Serum , Qual NEGATIVE ASHLIE Screen Pending LORELEI-1 Antibody Pending SS-A/Ro IgG Antibody Pending SS-B/La IgG Antibody Pending Sm (Hill) Antibody Pending HOGSHEAD OPENER Antibody Pending Scl-70 Scleroderma Ab Pending Double Strand DNA Ab Pending Centromere B Antibody Pending 02/26/19 08:00 WBC RBC Hgb Hct MCV MCH MCHC RDW RDW Differential Plt Count MPV Immature Gran % (Auto) Neut % (Auto) Lymph % (Auto) [place] % (Auto) Eos % (Auto) Baso % (Auto) Absolute Neuts (auto) Absolute Lymphs (auto) Total Counted Sodium 140 Potassium 4.0 Chloride 105 Carbon Dioxide 29.0 Anion Gap 6 BUN 9 Creatinine 0.72 Estim Creat Clear Calc 86.78 Est GFR (MDRD) Af Amer 115 Est GFR (MDRD) Non-Af 95 BUN/Creatinine Ratio 12.4 Glucose 108 H Lactic Acid Calcium 8.7 Total Bilirubin Direct Bilirubin AST ALT Alkaline Phosphatase Troponin I B-Natriuretic Peptide Total Protein Albumin Globulin TSH Free T4 Serum , Qual ASHLIE Screen LORELEI-1 Antibody SS-A/Ro IgG Antibody SS-B/La IgG Antibody Sm (Hill) Antibody HOGSHEAD OPENER Antibody Scl-70 Scleroderma Ab Double Strand DNA Ab Centromere B Antibody Discharge Diet: 1800 Calorie Control Diet Discharge Activity: Return to Normal Activity, - - Compression stockings bilateral lower extremities Home Medications: Medications to take at Discharge buPROPion XL [Wellbutrin Xl] 300 mg PO DAILY 07/02/14 Cefdinir [Omnicef [equiv]] 300 mg PO Q12H 02/21/19 Citalopram [Celexa] 40 mg PO DAILY 02/21/19 Fluticasone 0.05% [Flonase Nasal [place]] 1 spray NASAL DAILY 02/21/19 Acetaminophen [Tylenol] 1,000 mg PO Q6H PRN PRN 02/23/19 Cetirizine HCl 10 mg PO DAILY 02/23/19 Doxepin HCl 200 mg PO QHS 02/23/19 Furosemide [Lasix] 20 mg PO DAILY #5 tab 02/23/19 Ibuprofen [Motrin] 600 mg PO Q6H PRN PRN 02/23/19 Potassium Chloride [K-Dur] 20 meq PO DAILY 5 Days tab 02/23/19 Tizanidine HCl 4 mg PO Q8H PRN PRN 02/23/19 Primary Care Physician: Delaney Sotomayor MD [Primary Care Provider] - Please follow up with your Primary Care Physician in: 3-5 Days Disposition: Home Minutes spent on discharge:: 35 Patient Condition:: Stable Medical Necessity - Tobacco Use Smoking Status: Never smoker Meaningful Use Info Meaningful Use Diagnoses (Choose all that apply): None applicable <Sheldon Burris E - Last Filed: 02/26/19 13:15> Hospital Course and Treatment Summary of Care Provided: Hospitalist note: Discharge summary above reviewed and I concur with the above discharge and treatment plan. She was admitted because of bilateral leg swelling. According to the patient, her main symptom is where bilateral leg swelling. She denied chest pain or shortness of breath. She was sent by her PCP to ED for evaluation and admission. She was admitted as a case of anasarca for evaluation. On physical examination, patient has mild nonpitting edema of her legs and she is obese. There is no pitting pedal edema. There is no sacral edema. There is no ascites on physical examination, no shifting dullness or fluid thrill. Her routine blood work was unremarkable. LFT was normal. BNP and troponin was negative. TSH was normal. Serum test was normal. Lactic acid was normal. Serum total protein, albumin and globulin were all normal. CTA abdomen and pelvis for some reason was done and showed no evidence of acute vascular pathology, revealed mild anasarca and minimal ascites. Anasarca is a physical finding and I am not sure how anasarca can be evaluated by CT scan abdomen. Patient is obese. CT scan also revealed 16 x 11 x 12 dense nodule associated with the distal small bowel which is possibly a dense food particle or enhancing mass such as polyp. There was nonobstructing calcification of the right portal of the left kidney. CTA chest showed no PE, no dissection, no CHF, no pneumonia. Blood culture was done although there was no indication for blood culture. Her blood pressure was transiently borderline but improved and other vital signs was completely normal and stable. Abnormal and normal findings discussed with the patient, I discussed with her possibilities and differential diagnoses of ascites or anasarca or edema which includes heart disease, liver disease or kidney disease. There was no evidence of CHF, heart disease, or disease or kidney disease that can cause ascites or anasarca which are doubted at this point. Patient was frustrated and upset because she was told that she has large amount of fluids and her blood and I told her the opposite. As I mentioned above, no evidence of anasarca, minimal ascites is possible but could be just adipose tissue. There was no evidence of CHF, no liver disease, no kidney disease, no PE, no dissection, no pneumonia. Regarding the abnormal finding on the CT scan of the abdomen, I informed the patient that we are going to do small bowel follow-through to evaluate that dense opacity but she refused. I explained to her that this finding might be a food particle as mentioned in the CT scan report or could be a mass that need to be evaluated. Again, she refused to do any more testing at this time. 2D echocardiogram performed, report is pending. Apparently, patient has multiple visits to the ED for multiple complaints and there was a concern that she may have a drug-seeking behavior. Patient discharged home in a stable medical condition, discharged on her previous home medications including low-dose Lasix, highly recommended to follow-up with PCP in 3 to 5 days. - Physical Exam General: Alert, Oriented x3, Cooperative, No apparent distress. HEENT: Atraumatic, PERRLA, EOMI. Neck: Supple, No JVD, Negative Carotid Bruits, Trachea Midline, Thyroid Normal. Lungs: Clear to auscultation, Normal air movement, No rhonchi, No wheeze, No rales. Cardiovascular: Regular rate, Regular Rhythm, Normal S1, Normal S2, PMI Normal. Abdomen: Bowel Sounds Present, Soft, Non Tender, Non-Distended, obese, no Hepato-splenomegaly. Extremities: No clubbing, No cyanosis, minimal bilateral nonpitting edema. Skin: No rashes, No breakdown Neurological: Cranial nerves are intact, neuro grossly intact Vital Signs are stable. This note was generated with [employer] dictation software. It may contain incorrect words, spelling, and punctuation that were not noted in checking the note before signing. - Physical Exam Vital Signs Temp Pulse Resp BP Pulse Ox 98.0 F 83 18 117/55 L 97 02/26/19 12:15 02/26/19 12:15 02/26/19 12:15 02/26/19 12:15 02/26/19 12:15 Oxygen Delivery Method Room Air Weight: 230 lb 9.656 oz Body Mass Index (BMI) 41.0 Intake and Output for Last 24 Hours 02/24/19 02/25/19 02/26/19 23:59 23:59 23:59 Intake Total 0 / 0 628 / 628 Balance 0 / 0 628 / 628 Laboratory Tests Past 24 Hrs 02/25/19 02/25/19 02/25/19 18:35 18:35 18:35 WBC 5.9 RBC 4.42 Hgb 12.4 Hct 36.5 L MCV 82.6 MCH 28.1 MCHC 34.0 RDW 13.5 RDW Differential 39.5 Plt Count 258 MPV 10.1 Immature Gran % (Auto) 0.200 Neut % (Auto) 55.0 Lymph % (Auto) 32.1 [place] % (Auto) 7.1 Eos % (Auto) 5.1 H Baso % (Auto) 0.5 Absolute Neuts (auto) 3.2 Absolute Lymphs (auto) 1.89 Total Counted Not Reportable Sodium 139 Potassium 3.7 Chloride 105 Carbon Dioxide 30.0 Anion Gap 4 L BUN 6 L Creatinine 0.66 Estim Creat Clear Calc 94.67 Est GFR (MDRD) Af Amer 129 Est GFR (MDRD) Non-Af 106 BUN/Creatinine Ratio 9.1 L Glucose 95 Lactic Acid 0.6 Calcium 8.7 Total Bilirubin 0.30 Direct Bilirubin 0.08 AST 15 ALT 22 Alkaline Phosphatase 77 Troponin I < 0.015 B-Natriuretic Peptide Total Protein 6.8 Albumin 3.3 Globulin 3.5 TSH 2.82 Free T4 0.62 L Serum , Qual ASHLIE Screen LORELEI-1 Antibody SS-A/Ro IgG Antibody SS-B/La IgG Antibody Sm (Hill) Antibody HOGSHEAD OPENER Antibody Scl-70 Scleroderma Ab Double Strand DNA Ab Centromere B Antibody 02/25/19 02/25/19 02/26/19 18:35 18:35 08:00 WBC RBC Hgb Hct MCV MCH MCHC RDW RDW Differential Plt Count MPV Immature Gran % (Auto) Neut % (Auto) Lymph % (Auto) [place] % (Auto) Eos % (Auto) Baso % (Auto) Absolute Neuts (auto) Absolute Lymphs (auto) Total Counted Sodium Potassium Chloride Carbon Dioxide Anion Gap BUN Creatinine Estim Creat Clear Calc Est GFR (MDRD) Af Amer Est GFR (MDRD) Non-Af BUN/Creatinine Ratio Glucose Lactic Acid Calcium Total Bilirubin Direct Bilirubin AST ALT Alkaline Phosphatase Troponin I B-Natriuretic Peptide 35.4 Total Protein Albumin Globulin TSH Free T4 Serum , Qual NEGATIVE ASHLIE Screen Pending LORELEI-1 Antibody Pending SS-A/Ro IgG Antibody Pending SS-B/La IgG Antibody Pending Sm (Hill) Antibody Pending HOGSHEAD OPENER Antibody Pending Scl-70 Scleroderma Ab Pending Double Strand DNA Ab Pending Centromere B Antibody Pending 02/26/19 08:00 WBC RBC Hgb Hct MCV MCH MCHC RDW RDW Differential Plt Count MPV Immature Gran % (Auto) Neut % (Auto) Lymph % (Auto) [place] % (Auto) Eos % (Auto) Baso % (Auto) Absolute Neuts (auto) Absolute Lymphs (auto) Total Counted Sodium 140 Potassium 4.0 Chloride 105 Carbon Dioxide 29.0 Anion Gap 6 BUN 9 Creatinine 0.72 Estim Creat Clear Calc 86.78 Est GFR (MDRD) Af Amer 115 Est GFR (MDRD) Non-Af 95 BUN/Creatinine Ratio 12.4 Glucose 108 H Lactic Acid Calcium 8.7 Total Bilirubin Direct Bilirubin AST ALT Alkaline Phosphatase Troponin I B-Natriuretic Peptide Total Protein Albumin Globulin TSH Free T4 Serum , Qual ASHLIE Screen LORELEI-1 Antibody SS-A/Ro IgG Antibody SS-B/La IgG Antibody Sm (Hill) Antibody HOGSHEAD OPENER Antibody Scl-70 Scleroderma Ab Double Strand DNA Ab Centromere B Antibody Disposition: Home Minutes spent on discharge:: 29 Patient Condition:: Stable Meaningful Use Info Meaningful Use Diagnoses (Choose all that apply): None applicable Code Visit OBSV E&M: 80854 Observation care discharge
--- NOTE | 2019-02-26 12:48 | NURSING ---
Pt did not want to wait for the results of the ECHO, wanted to be discharged. Glenda Ruiz BOWLING [employer] FR[employer] DESK CLERK aware.
[2019-02-28 17:14] LABS: ANTINUCLEAR ANTIBODIES DIRECT Negative (Negative)
== END 2019-02-26 11:24 | disposition home or self-care (01) ==
LOC: ED 17:53 → PCU 22:14
PROVIDERS: Admitting Provider Hospitalist; Emergency Provider Emergency Medicine; Family Provider Internal Medicine; PCP Internal Medicine; Referring Provider Hospitalist; Visit Provider Hospitalist
DX: M79.89 Other specified soft tissue disorders (principal); F41.9 Anxiety disorder, unspecified; F32.9 Major depressive disorder, single episode, unspecified; E66.9 Obesity, unspecified; Z68.41 Body mass index [BMI] 40.0-44.9, adult; Z71.3 Dietary counseling and surveillance; R06.09 Other forms of dyspnea; M79.605 Pain in left leg; M79.604 Pain in right leg; R60.1 Generalized edema; J04.0 Acute laryngitis
CPT/HCPCS: 36415; 71275; 74174; 80048; 80076; 83605; 83880; 84439; 84443; 84484; 84703; 85025; 86038; 86225; 86235; 87040; 93005; 93306; 96361; 96372; 96374; 96375; 96376; 97802; 99218; 99285; J7030; J7040; Q9957; Q9967; A4216; G0378; J1940; J2405

== ENCOUNTER 2019-03-18 12:15 | Emergency (ER) | payer MEDICAID, SELFPAY ==
[2019-03-18 12:16] VITALS: BP 155/67; PULSE 82; RESP 16; TEMP 36.4; O2SAT 96; BMI 40.0
--- NOTE | 2019-03-18 12:39 | RAD_ITS ---
STUDY: X-RAY CHEST REASON FOR EXAM: Female, 38 years old. Chest pain/discomfort. Shortness of breath. TECHNIQUE: PA and lateral views of the chest. COMPARISON: Comparison is made with prior study dated February 23, 2019. FINDINGS: The lungs are clear and expanded. There is no demonstrated pleural abnormality. Normal size heart. Normal mediastinum and martin. Normal visualized pulmonary arteries. Normal visualized aortic arch and descending thoracic aorta. Normal visualized thoracic spine. Normal visualized ribs, clavicles, and shoulders. There is no demonstrated abnormality of the visualized soft tissue structures of the upper abdomen. RAD/Chest PA and Lateral IMPRESSION: Normal x-ray examination of the chest. Electronically Signed: Hussain Awad, at 13:14 EDT , Service support ,
[2019-03-18 13:32] LABS: Absolute Lymphocyte Count 1.91 X10^3/ul (0.83-4.51); Absolute Neutrophil Count 2.1 X10^3/uL (2.0-7.7); Basophil# 0.05 X10^3/uL; Eosinophil# 0.27 X10^3/uL; Eosinophils% 5.6 % (0-5); Hematocrit 37.8 % (37-47); Lymphocyte # 1.91 X10^3/ul (4.0); Lymphocyte % 39.4 % (19-41); Mean Corp Hgb Conc 34.4 g/gl (32-36); Mean Corpuscular Volume 81.5 fL (81-99); Mean Platelet Vol. 10.1 fl (6.2-12.0); Monocyte% 10.3 % (0-10); Neutrophil % 43.3 % (47-70); POSITIVE COUNT NO; POSITIVE DIFFERENTIAL NO; POSITIVE MORPHOLOGY NO; Platelet Count 261 K/mm3 (150-450); RBC Distribution Width CV 12.9 % (11.6-14.6); RBC Distribution Width SD 37.4 fl (35.1-43.9); Red Blood Count 4.64 M/mm3 (4.2-5.4); White Blood Count 4.9 K/mm3 (4.4-11.0)
[2019-03-18 13:44] LABS: ALB/GLOB Ratio 1.2 RATIO (0.9-2.4); AST(SGOT) 20 U/L (15-37); Alanine Aminotransfer ALT/SGPT 30 U/L (13-56); Albumin, Serum 3.7 g/dL (3.2-5.0); Alkaline Phosphatase 70 U/L (45-117); Anion Gap 5 (5-15); BUN 10 mg/dL (7-18); BUN/Creat Ratio 12.5 RATIO (10-20); Calcium,Total 9.1 mg/dL (8.5-10.1); Chloride 105 mmol/L (98-107); EST Glomerular Filtration Rate 85 mL/min (>60); Est Glom Filt Rate - Afr Amer 103 mL/min (>60); Globulin 3.2 g/dL (2.2-4.2); Glucose 104 mg/dL (74-106); Potassium 4.2 mmol/L (3.5-5.1); Protein, Total 6.9 g/dL (6.4-8.2); Sodium Level 141 mmol/L (136-145)
--- NOTE | 2019-03-18 14:31 | ED.DCSUM_ITS ---
- ER Visit Summary Date of Service: 03/18/19 Chief Complaint: Leg and feet swelling History of Present Illness: The patient is a 38 F Zent[place] to the emergency department with retention of fluid. Patient had multiple emergency department in February as well as an overnight admission. No obvious source was found. She was placed on 40 mg of Lasix a day. She states this is not helped. States she feels it up into her shoulders and with her breathing. She was supposed to go see hematology oncology yesterday but missed her appointment. She states that she has been working with her primary care physician and no causes been found. She was referred back to the emergency department today. She denies any cough. No fevers. She has had blood work ultrasound echocardiograms CAT scans of all been negative. She tells me I am honest with my primary care physician and do not need anything unless I really need it. I unsure of exactly what was meant by this. Physical Examination: Afebrile vital signs stable Gen: Well-nourished well-developed Head: Normocephalic atraumatic Eyes: Perrl EOMI ENT: TMs clear no rhinorrhea moist mucous membranes Neck: Supple no lymphadenopathy no JVD nontender CVS: Regular rate rhythm no murmurs normal S1-S2 Respiratory: No distress clear to auscultation bilaterally chest nontender Abdomen: Soft nontender nondistended normal bowel sounds no masses Back: Nontender Extremity: Nontender 1+ edema of the lower legs symmetrically. Skin: Normal color no rash Neuro: alert orientated ?3 CN II-XII intact normal strength sensation reflexes gait cerebellar Test Results: Chest x-ray is clear. CBC chemistry showed normal creatinine no anemia no thrombocytopenia normal electrolytes. Liver enzymes demonstrated normal protein. Emergency Department Course and Treatment: I do not see an emergent cause for the patient's symptomology. I am going to recommend she increase her Lasix to 40 mg twice a day. Impression: 1. Lymphedema This note was generated with [employer] dictation software. It may contain incorrect words, spelling, and punctuation that were not noted in review of the chart prior to signing ED Disposition - Plan for ED Patient: Disposition: Home or Assisted Living Instructions: Lymphedema Prescriptions: Furosemide [Lasix] 40 mg PO BID #10 tab Prescription Printed Referrals: Michele Clements MD [Primary Care Provider] - Additional Instructions: I would recommend increasing her Lasix to 40 mg twice a day for 5 days. Follow-up with primary care in 5 days
== END 2019-03-18 15:12 | disposition home or self-care (01) ==
PROVIDERS: Emergency Provider Emergency Medicine; Family Provider Family Medicine; PCP Family Medicine
DX: I89.0 Lymphedema, not elsewhere classified (principal)
CPT/HCPCS: 71046; 80053; 85025; 99283; A4216

== ENCOUNTER 2019-12-24 20:16 | Emergency (ER) | payer MEDICAID, SELFPAY ==
[2019-12-24] VITALS (7 sets, daily range): BP systolic 129–172; BP diastolic 75–90; PULSE 112–128; RESP 15–20; TEMP 37.6–38.7; O2SAT 96–97; BMI 33.6
--- NOTE | 2019-12-24 20:42 | EKG12_ITS ---
Test Reason : Blood Pressure : / mmHG Vent. Rate : 116 BPM Atrial Rate : 116 BPM P-R Int : 182 ms QRS Dur : 078 ms QT Int : 328 ms P-R-T Axes : 022 -06 015 degrees QTc Int : 455 ms Sinus tachycardia Otherwise normal ECG Confirmed by JOSSE CRUZ, SEGUN ([id number]), editor city JOCELYN NICHOLE ([id number] on 12/27/2019 9:04:10 AM Referred By: Confirmed By:SEGUN LOAIZA MD
--- NOTE | 2019-12-24 20:49 | ED.DCSUM_ITS ---
History of Present Illness Narrative: 39-year-old female presents with concern for COVID 19. Her mother was diagnosed recently and she did have contact with her mother the day prior to diagnosis. She began feeling ill 4 days ago with diarrhea, nausea, vomiting, body aches and productive cough. She has a history of asthma but is not on home oxygen. She uses breathing treatments as needed at baseline. She has never been intubated. She denies recent antibiotics. She has right lower and mid abdominal pain associated with this and no abdominal pain on the left. She has had a prior appendectomy and cholecystectomy. The current severity of her symptoms is moderate. The onset has been gradual. Prior similar symptoms: No <Caleb Botello - Last Filed: 12/24/19 21:36> <Norman Meza - Last Filed: 12/24/19 23:30> Chief Complaint: General Illness Capacity - Capacity Assessment Tool Can the patient make a choice & communicate that choice?: Yes <Caleb Botello - Last Filed: 12/24/19 21:36> Past Medical History Prior records reviewed: Yes Surgical History: appendectomy, cholecystectomy, - - 2 C-sections; lithotripsy Smoking Status: Never smoker - Family History Maternal Family History: Reports: Diabetes, Hypertension Paternal Family History: Reports: Diabetes, - - Pulmonary emboli <Caleb Botello - Last Filed: 12/24/19 21:36> <Norman Meza - Last Filed: 12/24/19 23:30> - Allergies and Home Meds Allergies/Adverse Reactions: Allergies hydrocodone [From Vicodin] Adverse Reaction (Verified 12/24/19 20:20) Itching loratadine [From Claritin] Adverse Reaction (Verified 12/24/19 20:20) Other Primary Care Physician: Michele Clements MD [Primary Care Provider] - Review of Systems General: Reports: Fever, Malaise. Denies: Chills, Sweats Eyes: Denies: Visual changes - bilaterally, Diplopia ENT: Reports: Rhinorrhea, Sore throat Cardiovascular: Denies: Chest pain, Palpitations Respiratory: Reports: Cough. Denies: Dyspnea, Dyspnea on exertion Gastrointestinal: Reports: Abdominal pain, Nausea, Vomiting, Diarrhea. Denies: Melena, Hematochezia Genitourinary: Denies: Dysuria, Hematuria, Frequency Musculoskeletal: Reports: Myalgias. Denies: Back pain, Extremity Pain Skin: Denies: Rash, Wounds Neurological: Denies: Headache, Weakness, Numbness <Caleb Botello - Last Filed: 12/24/19 21:36> Physical Exam Vital Signs/Narrative: Vital Signs Temp Pulse Resp BP Pulse Ox 12/24/19 20:16 101.6 F H 128 H 15 129/86 H 96 Inital Vital Signs reviewed: Yes General: Well nourished, Well developed, Acute Distress Head: Normocephalic, Atraumatic Eyes: Perrl, EOMI ENT: No rhinorrhea, Dry mucous membranes Neck: Supple, Nontender Cardiovascular: Regular rate, Regular rhythm, No murmurs Respiratory: No distress, CTA bilaterally, Chest nontender Abdomen: Soft, Nontender, Nondistended, Normal bowel sounds Back: Nontender, Normal Inspection Extremities: Nontender, No edema Skin: Normal color, No rash Neurological: Alert, Oriented x3, Cranial nerves II-XII grossly intact, Normal Strength, Normal Sensation Psychological: Normal affect, Normal Mood <Caleb Botello - Last Filed: 12/24/19 21:36> Vital Signs/Narrative: Vital Signs Temp Pulse Resp BP Pulse Ox 12/24/19 22:00 99.7 F H 114 H 19 H 172/90 H 97 12/24/19 21:39 101.2 F H 125 H 18 155/85 H 96 12/24/19 21:36 97 12/24/19 21:32 101 F H 128 H 20 H 138/78 H 97 12/24/19 20:16 101.6 F H 128 H 15 129/86 H 96 <Norman Meza - Last Filed: 12/24/19 23:30> Diagnostic/Tx/Re-eval - Rhythm Strip Rhythm Strip: Sinus Rhythm Rate: 116 Ectopy: None - Medical Decision Making I have ordered labs and a chest x-ray. I discussed the case with the [facility]. JESSICA Bernardo approved the Covid-19. #[id number]. I also ordered the sepsis order set and IV fluids. Her fever was addressed. She meets sepsis criteria and appears moderately ill. Spent approximately 35 minutes of critical care time donning and doffing my PPE, discussing the case with [facility], addressing her vital signs, documenting, and contemplating diagnosis and potential airway issues if she becomes more ill. - Critical Care Time Critical care time (excluding procedures): 30-74 minutes, Discussing w/Consultants, Arranging Admission or Transfer, Performing Direct Patient Care at Bedside <Caleb Botello - Last Filed: 12/24/19 21:36> - Medical Decision Making Patient turned over to me from the afternoon physician. Her CBC showed a mild elevated white count of 12.8 otherwise was unremarkable. Chemistries were normal and a potassium of 3.3. Liver enzymes normal. Lactic acid normal at 0.8. UA normal. Chest x-ray portable 1 view read by myself and the radiologist showed no acute abnormality. On repeat exam the patient's exam was benign. She and I went over all of her test results. Due to the lower suprapubic abdominal pain and a negative UA I explained to her we ordered a CAT scan. When they came to take her for the CAT scan she did not want to have it done. She and I discussed the possibility of diverticulitis. She understands of a cannot really diagnose that without a CAT scan. And she is deferring at this time. Patient be discharged home with outpatient follow-up. Her COVID test is pending Impression: 1. Fever uncertain etiology 2. rule out viral syndrome 3. lower abdominal pain uncertain etiology patient refusing CAT scan 4. Rule out COVID <Norman Meza - Last Filed: 12/24/19 23:30> ED Disposition <Caleb Botello - Last Filed: 12/24/19 21:36> <Norman Meza - Last Filed: 12/24/19 23:30> - Plan for ED Patient: Referrals: Michele Clements MD [Primary Care Provider] -
[2019-12-24] MEDS: Acetaminophen 325 MG Tablet 650 MG PO (20:55)
[2019-12-24 21:01] LABS: Absolute Lymphocyte Count 1.42 X10^3/uL (0.83-4.51); Absolute Neutrophil Count 9.8 X10^3/uL (2.0-7.7); Basophil# 0.08 X10^3/uL; Basophil% 0.6 % (0-1); Eosinophil# 0.09 X10^3/uL; Eosinophils% 0.7 % (0-5); Hematocrit 44.4 % (37-47); Hemoglobin 14.9 g/dL (12.0-15.0); Lymphocyte # 1.42 X10^3/ul (4.0); Lymphocyte % 11.1 % (19-41); Mean Corp Hgb Conc 33.6 g/dL (32-36); Mean Corpuscular Volume 83.5 fL (81-99); Mean Platelet Vol. 9.8 fl (6.2-12.0); Monocyte# 1.43 X10^3/uL; Monocyte% 11.1 % (0-10); NRBC Flagged by Analyzer 0 % (0-5); Neutrophil # 9.78 X10^3/uL (2.7-7.7); Neutrophil % 76.2 % (47-70); Platelet Count 271 K/mm3 (150-450); RBC Distribution Width CV 12.8 % (11.6-14.6); RBC Distribution Width SD 38.3 fl (35.1-43.9); Red Blood Count 5.32 M/mm3 (4.2-5.4); White Blood Count 12.8 K/mm3 (4.4-11.0)
[2019-12-24] MEDS: 0.9% Normal Saline 1,000 ML 999 ML IV (21:37)
--- NOTE | 2019-12-24 21:45 | RAD_ITS ---
STUDY: X-RAY CHEST REASON FOR EXAM: Female, 39 years old. fever with cough and n/v x 3-4 days. pt has been around positive covid19 TECHNIQUE: Single frontal view of the chest. COMPARISON: 03/18/2019 FINDINGS: The lungs are clear and expanded. There is no demonstrated pleural abnormality. Normal size heart. Normal mediastinum and martin. Normal visualized pulmonary arteries. Normal visualized aortic arch and descending thoracic aorta. Normal visualized thoracic spine. Normal visualized ribs, clavicles, and shoulders. There is no demonstrated abnormality of the visualized soft tissue structures of the upper abdomen. RAD/Chest 1 View (Portable) IMPRESSION: Normal x-ray examination of the chest. Electronically Signed: Parish Figueroa MD at 22:36 EDT Tel , Service support ,
[2019-12-24 21:52] LABS: ALB/GLOB Ratio 0.9 RATIO (0.9-2.4); AST(SGOT) 13 U/L (15-37); Alanine Aminotransfer ALT/SGPT 23 U/L (13-56); Albumin, Serum 3.6 g/dL (3.2-5.0); Alkaline Phosphatase 101 U/L (45-117); Anion Gap 6 (5-15); BUN 7 mg/dL (7-18); Chloride 103 mmol/L (98-107); Creatinine, Serum 0.58 mg/dL (0.55-1.02); EST Glomerular Filtration Rate 122 mL/min (>60); Est Glom Filt Rate - Afr Amer 147 mL/min (>60); Estimated Creatinine Clearance 106.66 ml/min; Globulin 3.9 g/dL (2.2-4.2); Glucose 117 mg/dL (74-106); Potassium 3.3 mmol/L (3.5-5.1); Protein, Total 7.5 g/dL (6.4-8.2); Sodium Level 136 mmol/L (136-145)
[2019-12-24 21:57] LABS: Lactic Acid 0.8 mmol/L (0.4-1.9); Prothrombin Time (Protime)PT. 12.8 SECONDS (11.7-14.9)
[2019-12-24 22:34] LABS: Mucous, Urine 0 SEEN /hpf (<or=2+); Red Blood Cells-Urine 0 SEEN /hpf (0-5); White Blood Cells 0 SEEN /hpf (0-5)
[2019-12-24 22:35] LABS: Color, Urine Yellow (Yellow); Glucose, Dipstick Normal (Normal); Ketone-Dipstick Negative (Negative); Leukocyte Esterase-Dipstick Negative /ul (Negative); Nitrite-Dipstick Negative (Negative); Occult Blood-Urine 10 /ul (Negative); Protein-Dipstick Negative (Negative); Urine Bilirubin Dipstick Negative (Negative); Urine Clarity Clear (Clear); Urine Urobilinogen Normal (Normal); Urine pH 6.5 (5.0 - 8.0)
[2019-12-24] MEDS: Ondansetron 4 MG/2 ML Vial IV (22:35)
[2019-12-24 22:42] LABS: Bacteria RARE /hpf (None Seen); Squamous Epithelial Cells - UA 0-5 SEEN /hpf (5-10)
--- NOTE | 2019-12-24 23:31 | ED.DEP ---
ED Disposition - Plan for ED Patient: Disposition: Home or Assisted Living Instructions: ED Viral Syndrome Referrals: Michele Clements MD [Primary Care Provider] - 3-5 Days if not improving Additional Instructions: Plenty of fluids and rest. Alternate Tylenol and Motrin for any fever. We sent a COVID test that will be back for 24 to 48 hours if it is positive we will notify you. Follow-up with your doctor if not improving. If your abdominal pain is getting worse return to have a CAT scan done. Your laboratory was basically unremarkable today. Your urine was clean with no signs of urinary tract infection. Your chest x-ray was negative.
== END 2019-12-24 23:47 | disposition home or self-care (01) ==
PROVIDERS: Emergency Provider Emergency Medicine; PCP Family Medicine
DX: R50.9 Fever, unspecified (principal); R10.30 Lower abdominal pain, unspecified; Z90.49 Acquired absence of other specified parts of digestive tract
CPT/HCPCS: 71045; 80053; 81001; 83605; 85025; 85610; 85730; 87040; 87086; 87088; 87635; 93005; 96361; 96374; 99285; J7030; A4216; J2405; U0004

== ENCOUNTER → 2020-02-07 15:41 | Outpatient (CLI) | payer MEDICAID, SELFPAY ==
[2019-12-24 20:16] VITALS: BMI 33.6
--- NOTE | 2020-02-07 15:44 | BI_ITS ---
MAMMOGRAPHY - BILATERAL SCREENING REASON FOR EXAM: Female, 39 years old. Routine annual screening examination. PERTINENT HISTORY: Grandmother with breast cancer. TECHNIQUE: Digital bilateral breast rick (3D mammographic acquisition) in the CC and MLO projections. 2-D mediolateral oblique (MLO) and craniocaudad (CC) views of both breasts were obtained. CAD: Full Field Digital Mammography with Computer Added Detection was performed. COMPARISON: None. Baseline examination. FINDINGS: Breast Composition: The breasts are heterogeneously dense, which may obscure small masses. There are no dominant masses or suspicious calcifications. No other significant abnormalities are identified. There has been no significant change since the prior study. BI/SCREEN MAMM (CAD) W/RICK BILAT IMPRESSION: Stable bilateral screening mammogram. Yearly follow-up mammogram recommended. (A) ASSESSMENT CATEGORY: BIRADS Category 1: Negative. A letter regarding these results will be sent to the patient by the facility within 30 days. Approximately 10% of breast cancers are not detected by mammography. A normal mammogram should not delay biopsy of a clinically suspicious abnormality. [id number] Electronically Signed: Hussain Awad, at 9:20 EDT , Service support ,
== END ==
PROVIDERS: PCP Family Medicine; Referring Provider Family Medicine; Visit Provider Family Medicine
DX: Z12.31 Encounter for screening mammogram for malignant neoplasm of breast (principal)
CPT/HCPCS: 77063; 77067

== ENCOUNTER → 2020-02-21 15:29 | Outpatient (CLI) | payer MEDICAID, SELFPAY ==
[2020-02-21 13:37] VITALS: BMI 33.6
[2020-02-21 17:50] LABS: Chlamydia Trachomatis by PCR Negative (Negative); Neisserai gonorrhoeae by PCR Negative (Negative); Probe Check PASS; Sample Adequacy Control PASS; Specimen Processing Control PASS
[2020-02-27 14:40] LABS: HPV APTIMA, High Risk Negative (Negative)
== END ==
PROVIDERS: PCP Family Medicine; Referring Provider Nurse Practitioner Women's Health; Visit Provider Nurse Practitioner Women's Health
DX: Z11.3 Encounter for screening for infections with a predominantly sexual mode of transmission (principal); Z12.4 Encounter for screening for malignant neoplasm of cervix
CPT/HCPCS: 87491; 87591; 87624; 88175; G0145

== ENCOUNTER → 2020-02-22 15:32 | Outpatient (CLI) | payer MEDICAID, SELFPAY ==
[2019-12-24 20:16] VITALS: BMI 33.6
[2020-02-21 13:37] VITALS: BMI 33.6
--- NOTE | 2020-02-22 15:36 | CT_ITS ---
STUDY: CT FACIAL BONES WITHOUT CONTRAST REASON FOR EXAM: Female, 39 years old. PT STATED HX OF DEVIATED SEPTUM, CAMILO JESSICA. RADIATION DOSAGE (If Supplied By Facility): CTDIvol = ( 33.06 ) mGy, DLP = ( 809.06 ) mGycm TECHNIQUE: The patient was scanned in a multi detector CT scanner. Sagittal and coronal images were reconstructed. Individualized dose optimization techniques were used for this CT. COMPARISON: None. FINDINGS: Normal soft tissue structures. Hyperostosis frontalis interna. Normal orbital diaz and orbital contents. Normal nasal bones and anterior nasal spine. Normal facial bones. There is no demonstrated fracture. Mild nasal septal deviation to the right. Normal visualized paranasal sinuses. CT/Sinus/Facial Bone IMPRESSION: Mild nasal septal deviation to the right. Paranasal sinuses are well aerated. Electronically Signed: Parish Figueroa MD at 16:05 EDT Tel , Service support ,
== END ==
PROVIDERS: PCP Family Medicine; Referring Provider Otolaryngology; Visit Provider Otolaryngology
DX: J32.9 Chronic sinusitis, unspecified (principal)
CPT/HCPCS: 70486

== ENCOUNTER → 2020-04-18 09:36 | Outpatient (CLI) | payer MEDICAID, SELFPAY ==
[2020-02-21 13:37] VITALS: BMI 33.6
== END ==
PROVIDERS: PCP Family Medicine; Visit Provider Otolaryngology
DX: Z11.59 Encounter for screening for other viral diseases (principal)
CPT/HCPCS: 87635; 94799; U0003

== ENCOUNTER → 2021-01-28 15:13 | Outpatient (CLI) | payer MEDICAID, SELFPAY ==
[2021-01-28 14:24] VITALS: BMI 43.8
[2021-01-28 15:38] LABS: Absolute Lymphocyte Count 2.45 X10^3/uL (0.83-4.51); Absolute Neutrophil Count 5.8 X10^3/uL (2.0-7.7); Basophil# 0.06 X10^3/uL; Basophil% 0.7 % (0-1); Eosinophil# 0.19 X10^3/uL; Eosinophils% 2.1 % (0-5); Hematocrit 40.5 % (37-47); Hemoglobin 13.9 g/dL (12.0-15.0); Lymphocyte # 2.45 X10^3/ul (0.83-4.51); Lymphocyte % 26.8 % (19-41); Mean Corp Hgb Conc 34.3 g/dL (32-36); Mean Corpuscular Hgb 28.5 pg (27.0-32.0); Monocyte# 0.57 X10^3/uL; Monocyte% 6.2 % (0-10); NRBC Flagged by Analyzer 0 % (0-5); Neutrophil # 5.84 X10^3/uL (2.7-7.7); Neutrophil % 63.8 % (47-70); Platelet Count 319 K/mm3 (150-450); RBC Distribution Width CV 12.6 % (11.6-14.6); RBC Distribution Width SD 37.8 fl (35.1-43.9); Red Blood Count 4.88 M/mm3 (4.2-5.4); White Blood Count 9.2 K/mm3 (4.4-11.0)
[2021-01-28 15:58] LABS: Estradiol 46.5 pg/mL; Follicle Stimulating Hormone 8.7 mIU/mL; Prolactin 5.3 ng/mL
== END ==
PROVIDERS: PCP Family Medicine; Referring Provider Obstetrics & Gynecology; Visit Provider Obstetrics & Gynecology
DX: E28.2 Polycystic ovarian syndrome (principal)
CPT/HCPCS: 36415; 82627; 82670; 83001; 84146; 84402; 85025; 82626

== ENCOUNTER → 2021-02-01 08:20 | Outpatient (CLI) | payer MEDICAID, SELFPAY ==
[2021-01-28 14:24] VITALS: BMI 43.8
--- NOTE | 2021-02-01 08:21 | US_ITS ---
STUDY: ULTRASOUND OF THE FEMALE PELVIS - COMPLETE REASON FOR EXAM: Female, 40 years old. Irregular periods, possible PCOS LMP: 01/18/2021 TECHNIQUE: Transabdominal and Transvaginal TECHNICAL QUALITY: Adequate. COMPARISON: None. FINDINGS: The uterus is anteverted and is in a midline position. The uterus measures 8.5 x 4.4 x 3.7 cm. Normal uterine cervix. The endometrium measures 5 mm in thickness, and is hyperechoic. There is no demonstrated endometrial mass. There is no demonstrated myometrial mass. I.U.D. - The patient does not have an I.U.D. The right ovary is visualized. The right ovary measures 2.8 x 2.9 x 2.4 cm. There is no right ovarian cyst or ovarian mass. There is no visualized right adnexal mass or complex lesion. There is normal arterial and normal venous vascularity. The left ovary is visualized. The left ovary measures 3.1 x 1.7 x 2.2. cm. There is no left ovarian cyst or ovarian mass. There is no visualized left adnexal mass or complex lesion. There is normal arterial and normal venous vascularity. Follicles on each ovary are of similar size and remains around the periphery of each ovary. Findings are suspicious for PCOS. Recommend confirmation with lab results There is no fluid in the cul-de-sac. The bladder is sonographically normal US/Pelvic (Non ) IMPRESSION: Both ovaries show similar size follicles arranged around the periphery of both ovaries in a fashion consistent with PCOS. Recommend correlation with lab results Sonographically normal uterus Electronically Signed: Tomer Starkey MD at 16:52 EDT , Service support ,
--- NOTE | 2021-02-01 08:21 | US_ITS ---
STUDY: ULTRASOUND OF THE FEMALE PELVIS - COMPLETE REASON FOR EXAM: Female, 40 years old. Irregular periods, possible PCOS LMP: 01/18/2021 TECHNIQUE: Transabdominal and Transvaginal TECHNICAL QUALITY: Adequate. COMPARISON: None. FINDINGS: The uterus is anteverted and is in a midline position. The uterus measures 8.5 x 4.4 x 3.7 cm. Normal uterine cervix. The endometrium measures 5 mm in thickness, and is hyperechoic. There is no demonstrated endometrial mass. There is no demonstrated myometrial mass. I.U.D. - The patient does not have an I.U.D. The right ovary is visualized. The right ovary measures 2.8 x 2.9 x 2.4 cm. There is no right ovarian cyst or ovarian mass. There is no visualized right adnexal mass or complex lesion. There is normal arterial and normal venous vascularity. The left ovary is visualized. The left ovary measures 3.1 x 1.7 x 2.2. cm. There is no left ovarian cyst or ovarian mass. There is no visualized left adnexal mass or complex lesion. There is normal arterial and normal venous vascularity. Follicles on each ovary are of similar size and remains around the periphery of each ovary. Findings are suspicious for PCOS. Recommend confirmation with lab results There is no fluid in the cul-de-sac. The bladder is sonographically normal US/Transvaginal Non- IMPRESSION: Both ovaries show similar size follicles arranged around the periphery of both ovaries in a fashion consistent with PCOS. Recommend correlation with lab results Sonographically normal uterus Electronically Signed: Tomer Starkey MD at 16:52 EDT , Service support ,
== END ==
PROVIDERS: PCP Family Medicine; Referring Provider Obstetrics & Gynecology; Visit Provider Obstetrics & Gynecology
DX: E28.2 Polycystic ovarian syndrome (principal)
CPT/HCPCS: 76830; 76856